=== PATIENT | female | born 1950 | race Caucasian/White ===

== ENCOUNTER 2017-08-23 17:00 | Inpatient (IN) | payer MEDICARE, MEDICAID ==
[2017-08-23] MEDS ORDERED: Sodium Chloride 0.9% 10 ML Syringe FLUSH PRN (17:20)
[2017-08-23] MEDS ORDERED: Sodium Chloride 0.9% 1,000 ML IV ONE (17:20)
--- NOTE | 2017-08-23 17:31 | EDM.PDOC ---
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 The patient is legally blind and she has been having troubles with headaches. She had surgery for glaucoma to see if that would help with the headaches but it did not. She also has not been eating or drinking much. She says she does not have an appetite and when she does try to eat she feels nauseated. She has not vomited. She has no fever or chills. She has no chest pain, shortness of breath or abdominal pain. She has no numbness or weakness. She went to see Dr Guzman for the first time today. He did some labs work and examined her. Her BP was low at 89 systolic. Her WBC is elevated at 11.2. Her glucose was elevated at 125. Her BUN was elevated at 51. Her creatinine was 2.22. Her creatinine is usually normal. Dr Guzman sent her up here for admission for dehydration and renal insufficiency with hypotension. Onset: Gradual Duration: Day(s): Location: Reports: Head Quality: Reports: Ache Severity: Moderate Improves with: Reports: None Worsens with: Reports: None Associated Symptoms: Reports: Headaches, Nausea/Vomiting. Denies: Chest Pain, Cough, Fever/Chills, Shortness of Breath - Related Data Allergies Allergy/AdvReac Type Severity Reaction Status Date / Time No Known Allergies Allergy Verified 09/14/16 22:51 Home Meds: Home Meds Lisinopril 40 mg PO DAILY #30 tablet 06/23/14 [Rx] Diltiazem HCl [Dilt-Xr] 240 mg PO DAILY 11/23/15 [History] Acetaminophen/HYDROcodone [Menan 325-5 MG] 1 tab PO Q6H PRN #12 tablet 11/24/15 [Rx] Omeprazole 20 mg PO ACBREAKFAST 09/15/16 [History] amLODIPine Besylate [Norvasc] 5 mg PO DAILY 09/15/16 [History] Acetaminophen [Tylenol] 650 mg PO Q6H PRN #30 tablet 10/03/16 [Rx] Bisacodyl [Dulcolax] 10 mg RECTAL DAILY PRN #30 supp 10/03/16 [Rx] Cholecalciferol (Vitamin D3) [Vitamin D3] 2,000 units PO DAILY tablet 10/03/16 [Rx] Docusate Sodium [Colace] 100 mg PO DAILY cap 10/03/16 [Rx] Hydrochlorothiazide 25 mg PO DAILY #30 tablet 10/03/16 [Rx] Multivitamins,Therapeutic [Thera] 1 each PO DAILY tablet 10/03/16 [Rx] Sertraline [Zoloft] 50 mg PO DAILY #60 tablet 10/03/16 [Rx] Past Medical History HEENT History: Reports: Glaucoma Other HEENT History: cataracts Cardiovascular History: Reports: Hypertension Respiratory History: Reports: None Gastrointestinal History: Reports: Cholelithiasis, Jaundice Other Gastrointestinal History: plugged bile duct Genitourinary History: Reports: Urinary Incontinence, UTI, Recurrent 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: Prolapsed Uterus Other Musculoskeletal History: Generalized weakness Psychiatric History: Reports: Depression - Infectious Disease History Infectious Disease History: Reports: Chicken Pox, Measles, Mumps - Past Surgical History HEENT Surgical History: Reports: Eye Surgery Female Surgical History: Reports: Hysterectomy, Salpingo-Oophorectomy Social & Family History - Family History Other Oncologic Family History: sister of cancer - Tobacco Use Smoking Status *Q: Never Smoker Second Hand Smoke Exposure: No - Caffeine Use Caffeine Use: Reports: Coffee, Soda - Alcohol Use Days Per Week of Alcohol Use: 0 - Recreational Drug Use Recreational Drug Use: No - Living Situation & Occupation Living situation: Reports: , with Spouse Occupation: Retired ED ROS GENERAL - Review of Systems Review Of Systems: See Below Constitutional: Reports: No Symptoms HEENT: Reports: No Symptoms Respiratory: Reports: No Symptoms Cardiovascular: Reports: No Symptoms Endocrine: Reports: No Symptoms GI/Abdominal: Reports: Decreased Appetite, Nausea. Denies: Abdominal Pain, Vomiting : Reports: No Symptoms Musculoskeletal: Reports: No Symptoms Neurological: Reports: Headache ED EXAM, GENERAL - Physical Exam Exam: See Below Exam Limited By: No Limitations General Appearance: Alert, No Apparent Distress Ears: Normal External Exam Nose: Normal Inspection Head: Atraumatic, Normocephalic Neck: Normal Inspection Respiratory/Chest: No Respiratory Distress, Lungs Clear, Normal Breath Sounds Cardiovascular: Regular Rate, Rhythm, No Edema, No Murmur GI/Abdominal: Soft, Non-Tender, No Organomegaly, No Mass Back Exam: Normal Inspection Extremities: Normal Inspection Neurological: Alert, Oriented, No Motor/Sensory Deficits Course - Vital Signs Last Recorded V/S: Last Vital Signs Temp 98 F 08/23/17 17:15 Pulse 62 08/23/17 17:15 Resp 16 08/23/17 17:15 BP 82/64 L 08/23/17 17:15 Pulse Ox 100 08/23/17 17:15 - Orders/Labs/Meds Orders: Active Orders 24 hr Category Date Time Status Insert Calderon Catheter [Insert Urinary Catheter] [OM.PC] Care 08/23/17 18:00 Ordered Stat Peripheral IV Care [RC] . DIRECTED Care 08/23/17 17:20 Active Urinary Catheter Assessment [RC] ASDIRECTED Care 08/23/17 17:57 Active SEDIMENTATION RATE AUTO [HEME] Stat Lab 08/23/17 17:35 Received UA W/MICROSCOPIC [URIN] Stat Lab 08/23/17 18:04 Results Sodium Chloride 0.9% [Saline Flush] Med 08/23/17 17:20 Active 10 ml FLUSH ASDIRECTED PRN Peripheral IV Insertion Adult [OM.PC] Routine Oth 08/23/17 17:20 Ordered Medication Orders Sodium Chloride (Saline Flush) 10 ml FLUSH ASDIRECTED PRN PRN Reason: Keep Vein Open Last Admin: 08/23/17 17:35 Dose: 10 ml Labs: Laboratory Tests 08/23/17 Range/Units 18:04 Urine Color Yellow (Yellow) Urine Appearance Clear (Clear) Urine pH 5.5 (5.0-8.0) Ur Specific Combs 1.025 (1.005-1.030) Urine Protein Trace H (Negative) Urine Glucose (UA) Negative (Negative) Urine Ketones Trace H (Negative) Urine Occult Blood Negative (Negative) Urine Nitrite Negative (Negative) Urine Bilirubin Negative (Negative) Urine Urobilinogen 0.2 (0.2-1.0) Ur Leukocyte Esterase Negative (Negative) Meds: Medications Generic Name Dose Route Start Last Admin Trade Name Freq PRN Reason Stop Dose Admin Sodium Chloride 10 ml 08/23/17 17:20 08/23/17 17:35 Saline Flush FLUSH 10 ml ASDIRECTED PRN Administration Keep Vein Open Discontinued Medications Generic Name Dose Route Start Last Admin Trade Name Donta PRN Reason Stop Dose Admin Sodium Chloride 1,000 mls @ 1,000 mls/hr 08/23/17 17:20 08/23/17 18:15 Normal Saline IV 08/23/17 18:19 1,000 mls/hr ONETIME ONE Administration - Re-Assessments/Exams Free Text/Narrative Re-Assessment/Exam: 08/23/17 17:33 I ordered an IV NS 1L bolus, UA and a CT of her head. 08/23/17 18:[address] looks good. Her UA shows no UTI. Her BP did go down to 79 systolic. She is still getting the bolus. 08/23/17 18:46 I feel she needs to be admitted. I called Dr Melo and he agreed to the admission. 08/23/17 18:57 Her came and she did not remember him for a short time. Departure - Departure Time of Disposition: 18:50 Disposition: Admitted As Inpatient 64 Condition: Poor Clinical Impression: Dehydration, Renal insufficiency, No appetite, Nausea Headache Qualifiers: Headache type: unspecified Headache chronicity pattern: chronic headache Intractability: not intractable Qualified Code(s): R51 - Headache Hypotension Qualifiers: Hypotension type: unspecified hypotension type Qualified Code(s): I95.9 - Hypotension, unspecified Referrals: Stephen Guzman MD [Primary Care Provider] - Forms: ED Department Discharge - My Orders Last 24 Hours: My Active Orders 08/23/17 17:20 Peripheral IV Care [RC] . DIRECTED Sodium Chloride 0.9% [Saline Flush] 10 ml FLUSH ASDIRECTED PRN Peripheral IV Insertion Adult [OM.PC] Routine 08/23/17 17:35 SEDIMENTATION RATE AUTO [HEME] Stat 08/23/17 17:57 Urinary Catheter Assessment [RC] ASDIRECTED 08/23/17 18:00 Insert Calderon Catheter [Insert Urinary Catheter] [OM.PC] Stat 08/23/17 18:04 UA W/MICROSCOPIC [URIN] Stat - Assessment/Plan Last 24 Hours: My Active Orders 08/23/17 17:20 Peripheral IV Care [RC] . DIRECTED Sodium Chloride 0.9% [Saline Flush] 10 ml FLUSH ASDIRECTED PRN Peripheral IV Insertion Adult [OM.PC] Routine 08/23/17 17:35 SEDIMENTATION RATE AUTO [HEME] Stat 08/23/17 17:57 Urinary Catheter Assessment [RC] ASDIRECTED 08/23/17 18:00 Insert Calderon Catheter [Insert Urinary Catheter] [OM.PC] Stat 08/23/17 18:04 UA W/MICROSCOPIC [URIN] Stat
--- NOTE | 2017-08-23 18:46 | CT ---
Head CT Technique: Multiple axial sections through the brain were obtained. Intravenous contrast was not utilized. Comparison: Prior head CT study of 09/14/16. Findings: Ventricles are moderately prominent. Sulci and basal cisterns are mildly prominent. Findings most likely due to atrophy with greater central component. Diminished density is noted within the periventricular and subcortical white matter. 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 No other abnormal parenchymal densities are seen. No evidence of intracranial hemorrhage. No midline shift or mass effect is seen. Atherosclerotic calcification is seen within the vertebral vessels. Minimal atherosclerotic calcification is noted within the carotid siphon. Right orbital prosthesis is seen. No acute calvarial abnormality is seen. Impression: 1. Senescent change as noted above. No significant change is seen from prior study. Nothing acute is identified. Diagnostic code #2
--- NOTE | 2017-08-23 19:44 | PCM.HP ---
H&P History of Present Illness - General Date of Service: 08/23/17 Admit Problem/Dx: Admission Diagnosis/Problem Admission Diagnosis/Problem Acute renal insufficiency Source of Information: Patient, Family, Old Records, Provider, RN, RN Notes Reviewed History Limitations: Reports: No Limitations - History of Present Illness Initial Comments - Free Text/Narative: Senait Solis is a 66 yo female who presented to our ED on 08/23/17 after being seen at the [facility] by Dr. Guzman for headaches, dehydration, and hypotension. She is legally blind and has been having trouble with headaches. She recently underwent glaucoma surgery to see if this would help, however he had did not. She has not been eating or drinking much. She reports a positive appetite, however when she does try to eat she feels nauseated. Has not vomited. No fever or chills, chest pain, shortness of breath, or abdominal pain. Denies numbness or weakness. Her BP at [facility] was low at 89 systolic and her white count was elevated at 11.2. Hemoglobin was normal at 13.9 hematocrit normal at 43.9. Platelet count normal at 238,000. She was normocytic. Glucose is elevated at 125. BUN was elevated at 51. Creatinine was high at 2.22. Sodium was normal at 139. Potassium normal 4.2. CO2 was low at 21. Anion gap was good at 18. Albumin was good at 3.5. Liver enzymes were normal with AST at 31 ALT at 52 and alkaline phosphatase at 74. Bilirubin was normal at 0.3. Old records reveals her creatinine is usually normal. Her EGFR was 22. CRP was less than 2.0 In the ED her temperature was 98F. Pulse 62. Respirations 16. Blood pressure was low at 82/64. Pulse ox 100% on room air. An IV was established UA was negative. Sedimentation rate was mildly elevated at 24. UA was negative. As noted before prior labs were obtained at [facility]. CT of the head showed senescent changes and nothing acute. Her blood pressure remained low in the ED and she was weak. It is reported she also did not recognize her initially when he walked into the room. Dr. Hunt reports he spoke with her primary care provider Dr. Guzman and he is planning to work her up for these headaches. She carries a history of being legally blind, glaucoma, cataracts, HTN, cholelithiasis, dementia, urinary incontinence, recurrent UTIs, prolapsed uterus , generalized weakness, and depression. She was never a smoker. She is a full code and her primary care provider is Dr. Guzman. - Related Data Allergies/Adverse Reactions: Allergies Allergy/AdvReac Type Severity Reaction Status Date / Time No Known Allergies Allergy Verified 09/14/16 22:51 Home Medications: Home Meds Lisinopril 40 mg PO DAILY #30 tablet 06/23/14 [Rx] Diltiazem HCl [Dilt-Xr] 240 mg PO DAILY 11/23/15 [History] Omeprazole 20 mg PO ACBREAKFAST 09/15/16 [History] Acetaminophen [Tylenol] 650 mg PO Q6H PRN #30 tablet 10/03/16 [Rx] Bisacodyl [Dulcolax] 10 mg RECTAL DAILY PRN #30 supp 10/03/16 [Rx] Cholecalciferol (Vitamin D3) [Vitamin D3] 2,000 units PO DAILY tablet 10/03/16 [Rx] Docusate Sodium [Colace] 100 mg PO DAILY cap 10/03/16 [Rx] Hydrochlorothiazide 25 mg PO DAILY #30 tablet 10/03/16 [Rx] Multivitamins,Therapeutic [Thera] 1 each PO DAILY tablet 10/03/16 [Rx] Bimatoprost [LUMIGAN 0.03% Ophth Soln] 1 drop EYEBOTH BEDTIME 08/23/17 [History] Brimonidine Tartrate/Timolol [Combigan Eye Drops] 1 drop EYEBOTH BID 08/23/17 [ History] Citalopram Hydrobromide [Celexa] 15 mg PO DAILY 08/23/17 [History] Estrogens, Conjugated [Premarin Vaginal Crm] 0.5 gm VAG DAILY 08/23/17 [History] Prednisolone Acetate/Nepafenac [Prednisolone 1%-Nepafenac 0.1%] 3.5 ml OP TID [History] Past Medical History HEENT History: Reports: Glaucoma Other HEENT History: cataracts Cardiovascular History: Reports: Hypertension Respiratory History: Reports: None Gastrointestinal History: Reports: Cholelithiasis, Jaundice Other Gastrointestinal History: plugged bile duct Genitourinary History: Reports: Urinary Incontinence, UTI, Recurrent 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: Prolapsed Uterus Other Musculoskeletal History: Generalized weakness Neurological History: Reports: Alzheimers Disease Psychiatric History: Reports: Depression Endocrine/Metabolic History: Reports: Vitamin D Deficiency - Infectious Disease History Infectious Disease History: Reports: Chicken Pox, Measles, Mumps - Past Surgical History HEENT Surgical History: Reports: Eye Surgery Female Surgical History: Reports: Hysterectomy, Salpingo-Oophorectomy Social & Family History - Family History Other Oncologic Family History: sister of cancer - Tobacco Use Smoking Status *Q: Never Smoker Second Hand Smoke Exposure: No - Caffeine Use Caffeine Use: Reports: Coffee, Soda - Alcohol Use Days Per Week of Alcohol Use: 0 - Recreational Drug Use Recreational Drug Use: No - Living Situation & Occupation Living situation: Reports: , with Spouse Occupation: Retired H&P Review of Systems - Review of Systems: Review Of Systems: See Below General: Reports: Weakness, Decreased Appetite. Denies: Fever, Chills, Malaise , Fatigue, Night Sweats HEENT: Reports: Headaches (in ED - resolved now ). Denies: Ear Pain, Eye Pain, Hearing Changes, Rhinitis, Sinus Congestion, Sore Throat, Vertigo, Visual Changes, Other Pulmonary: Reports: No Symptoms. Denies: Shortness of Breath, Wheezing, Pleuritic Chest Pain, Cough, Sputum Cardiovascular: Reports: No Symptoms. Denies: Chest Pain, Palpitations, Dyspnea on Exertion, Orthopnea, PND, Edema Gastrointestinal: Reports: No Symptoms. Denies: Abdominal Pain, Black Stool, Bloody Stool, Constipation, Diarrhea, Mucous in Stool, Nausea, Vomiting Genitourinary: Reports: No Symptoms. Denies: Dysuria, Frequency, Burning, Pain , Urgency Musculoskeletal: Reports: No Symptoms. Denies: Neck Pain, Shoulder Pain, Arm Pain, Back Pain, Hand Pain, Leg Pain, Foot Pain, Muscle Pain Skin: Reports: No Symptoms. Denies: Cyanosis, Jaundice, Mottled, Pallor Psychiatric: Reports: No Symptoms. Denies: Confusion, Depression, Mood Lability Neurological: Reports: Headache, Weakness. Denies: Confusion, Dizziness, Numbness, Tingling, Trouble Speaking, Difficulty Walking, Change in Speech Hematologic/Lymphatic: Reports: No Symptoms Immunologic: Reports: No Symptoms Review of Systems Comment:: Patient appears to be somewhat hard of hearing as I had to speak quite loudly to elicit a good response. She did answer questions appropriately. She reports she had a headache in the ED but that has resolved now. No complaints currently. Exam - Exam Exam: See Below - Vital Signs Vital Signs: Last Vital Signs Temp 98 F 08/23/17 17:15 Pulse 62 08/23/17 17:15 Resp 16 08/23/17 17:15 BP 82/64 L 08/23/17 17:15 Pulse Ox 100 08/23/17 17:15 Weight: 132 lb 12.8 oz - Exam Quality Assessment: DVT Prophylaxis General: Alert, Oriented, Cooperative HEENT: Conjunctiva Clear, EACs Clear, Hearing Intact (but somwheat hard of hearing ), Mucosa Moist & [place], Nares Patent, Posterior Pharynx Clear Neck: Supple, Trachea Midline, Full Range of Motion. No: Lymphadenopathy, JVD Lungs: Clear to Auscultation, Normal Respiratory Effort Cardiovascular: Regular Rate, Regular Rhythm GI/Abdominal Exam: Normal Bowel Sounds, Soft, Non-Tender, No Organomegaly, No Distention, No Abnormal Bruit, No Mass (Female) Exam: Deferred Rectal (Female) Exam: Deferred Back Exam: Normal Inspection, Full Range of Motion Extremities: Normal Inspection, Normal Range of Motion, Non-Tender, No Pedal Edema, Normal Capillary Refill Peripheral Pulses: 2+: Radial (L), Radial (R), Posterior Tibial (L), Posterior Tibial (R), Dorsalis Pedis (L), Dorsalis Pedis (R) Skin: Warm, Dry, Intact Neurological: Cranial Nerves Intact (grossly ) Neuro Extensive - Mental Status: Alert, Oriented x3, Normal Mood/Affect, Normal Cognition, Memory Intact Neuro Extensive - Motor, Sensory, Reflexes: CN II-XII Intact (grossly ) Psychiatric: Alert, Normal Affect, Normal Mood Physical Exam Comments:: Patient examined after settling into hospital bed. No concerns this time. Vital signs have improved greatly. *Q Meaningful Use (ADM) - VTE *Q VTE Criteria *Q: - Stroke *Q Stroke Criteria *Q: - AMI *Q AMI Criteria *Q: - Problem List (1) Renal insufficiency SNOMED Code(s): 641549489 ICD Code: N28.9 - DISORDER OF KIDNEY AND URETER, UNSPECIFIED Status: Acute Priority: High Current Visit: Yes (2) Dehydration SNOMED Code(s): 87994100 ICD Code: E86.0 - DEHYDRATION Status: Acute Priority: High Current Visit: Yes (3) Weakness SNOMED Code(s): 48468320 ICD Code: R53.1 - WEAKNESS Status: Acute Priority: High Current Visit: Yes (4) Hypotension SNOMED Code(s): 07171900 ICD Code: I95.9 - HYPOTENSION, UNSPECIFIED Status: Acute Priority: High Current Visit: Yes Qualifiers: Hypotension type: unspecified hypotension type Qualified Code(s): I95.9 - Hypotension, unspecified (5) Headache SNOMED Code(s): 15688195 ICD Code: R51 - HEADACHE Status: Resolved Priority: Medium Current Visit: Yes Qualifiers: Headache type: unspecified Headache chronicity pattern: chronic headache Intractability: not intractable Qualified Code(s): R51 - Headache Problem List Initiated/Reviewed/Updated: Yes Orders Last 24hrs: Active Orders 24 hr Category Date Time Status Admission Status [Patient Status] [ADT] Routine ADT 08/23/17 19:26 Active CULTURE BLOOD [BC] Stat Lab 08/23/17 17:35 Received CULTURE BLOOD [BC] Stat Lab 08/23/17 17:50 Received Blood Culture x2 Reflex Set [OM.PC] Stat Oth 08/23/17 19:22 Ordered Medication Orders Sodium Chloride (Saline Flush) 10 ml FLUSH ASDIRECTED PRN PRN Reason: Keep Vein Open Last Admin: 08/23/17 17:35 Dose: 10 ml Assessment/Plan Comment:: I/P: Acute renal insufficiency -Reported pt. has had poor food and fluid intake -Hypotensive in ED and at [facility] -Anion gap normal at 18 at [facility] -BUN 18 at [facility] -Creatinine 2.22 at [facility] -eGFR 22 at [facility] -[facility] hospital notes show baseline kidney function is within normal ranges -Hypotensive with BP of 80/50 at [place] and 82/64 in ED - improved on admission as below -Likely 2/2 dehydration and poor intake -Given 1 L bolus in ED with BP now 101/64 -Calderon in place for output monitoring -Fluids as ordered Dehydration -see above Weakness -worse than baseline -likely 2/2 above -UA negative -WBC only slightly elevated -CRP <0.2 -fall precautions Hypotension -Improved from ED -Fluids as above -Likely 2/2 dehydration -Continue to monitor Headache -Resolved prior to admission -SED in ER slightly elevated at 24 to r/o temporal arteritis -Has had many chronic episodes of unknown etiology -Recent glaucoma surgery with no resolution of symptoms. -Dr. Guzman is working up -MRI ordered Chronic: Dementia Glaucoma HTN Cholelithiasis Urinary incontenence recurrent UTI Prolapsed uterus generalized weakness Depression Plan: Admit to medical floor GI prophylaxis: pepcid DVT prophylaxis: RENA fishman and Terry CM/SW for discharge planning PT/OT Other orders as indicated above Routine AM labs She is a high fall risk She is a full code. Her PCP is Dr. Guzman at [facility] here in [place]
[2017-08-23] MEDS ORDERED: Acetaminophen/HYDROcodone 325-5 MG Tab PO PRN (20:13)
[2017-08-23] MEDS ORDERED: Docusate Sodium 100 MG Cap PO PRN (20:13)
[2017-08-23] MEDS ORDERED: Ondansetron 4 MG/2 ML SDV IV PRN (20:13)
[2017-08-23] MEDS ORDERED: Temazepam 7.5 MG Cap PO PRN (20:13)
[2017-08-23] MEDS ORDERED: Magnesium Hydroxide 400 MG/5 ML Susp 30 ML Cup PO PRN (20:13)
[2017-08-23] MEDS ORDERED: Ondansetron 4 MG Tab.DIS PO PRN (20:13)
[2017-08-23] MEDS ORDERED: Acetaminophen 325 MG Tab PO PRN (20:13)
[2017-08-23] MEDS ORDERED: Bisacodyl 5 MG Tab PO PRN (20:13)
[2017-08-23] MEDS ORDERED: Albuterol/Ipratropium 3.0-0.5 MG/3 ML Neb Soln NEB PRN (20:13)
[2017-08-23] MEDS ORDERED: hydrALAZINE 10 MG Tab PO PRN (20:44)
[2017-08-23] MEDS ORDERED: Metoprolol Tartrate 5 MG/5 ML SDV IVPUSH PRN (20:44)
[2017-08-23] MEDS ORDERED: Brimonidine 0.2% Ophth Soln 5 ML Bottle EYEBOTH SCH (21:00)
[2017-08-23] MEDS: Sodium Chloride 0.9% 1,000 ML IV SCH (21:00)
[2017-08-23] MEDS ORDERED: FLU Vacc TS 2017-18 (65yr UP)/PF 180 MCG/0.5 ML Syringe IM ONE (21:00)
[2017-08-23] MEDS ORDERED: Famotidine 20 MG Tab PO SCH (21:00)
[2017-08-23] MEDS: Latanoprost 0.005% Ophth Soln 2.5 ML Bottle EYEBOTH SCH (21:55)
[2017-08-24] MEDS: Sodium Chloride 0.9% 1,000 ML IV SCH ×3 (02:01→23:48)
[2017-08-24] MEDS: Pantoprazole 40 MG Tab.CR PO SCH (06:34)
[2017-08-24] MEDS: Cholecalciferol (Vitamin D3) 1,000 Unit Tab PO SCH (09:32)
[2017-08-24] MEDS: Multivitamins,Therapeutic Tab PO SCH (09:32)
[2017-08-24] MEDS: Citalopram 10 MG Tab PO SCH (09:32)
[2017-08-24] MEDS: Diltiazem 240 MG Cap.ER PO SCH (09:33)
[2017-08-24] MEDS: Timolol Maleate 0.5% Ophth Soln 5 ML Bottle EYEBOTH SCH ×2 (09:33→20:36)
[2017-08-24] MEDS: Brimonidine 0.2% Ophth Soln 5 ML Bottle EYEBOTH SCH ×2 (09:33→20:34)
[2017-08-24] MEDS: Estrogens,Conjugated Vaginal Crm 30 GM Tube VAG SCH (09:34)
--- NOTE | 2017-08-24 13:41 | MR ---
MRI brain Technique: T1 sagittal; T2, T2 FLAIR, T1 and diffusion axial; T1-weighted coronal images were also obtained. Comparison: Prior head CT study of 08/23/17. Findings: Ventricles along with basal cisterns and sulci over the convexities are moderately prominent. Normal signal void is seen within the major cerebral arteries within the skull base. Diffuse increased signal is seen within the periventricular and subcortical white matter which is compatible with small vessel ischemic demyelination change. 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 There are no acute diffusion abnormalities being seen. Impression: 1. Senescent change as noted above. 2. No acute diffusion abnormalities are identified. Diagnostic code #2
--- NOTE | 2017-08-24 16:49 | PCM.PN ---
- General Info Date of Service: 08/24/17 Admission Dx/Problem (Free Text): Admission Diagnosis/Problem Admission Diagnosis/Problem Acute renal insufficiency Subjective Update: Follow-up Functional Status: Reports: Pain Controlled (Pain free ), Tolerating Diet, Ambulating, Urinating. Denies: New Symptoms - Review of Systems General: Reports: No Symptoms. Denies: Fever, Weakness, Malaise, Chills HEENT: Reports: No Symptoms. Denies: Ear Pain, Eye Pain, Headaches Pulmonary: Reports: No Symptoms. Denies: Shortness of Breath, Pleuritic Chest Pain, Cough, Sputum Cardiovascular: Reports: No Symptoms. Denies: Chest Pain, Palpitations, Dyspnea on Exertion, Edema Gastrointestinal: Reports: No Symptoms. Denies: Abdominal Pain, Constipation, Diarrhea, Nausea, Vomiting Genitourinary: Reports: No Symptoms. Denies: Dysuria, Frequency, Burning, Urgency Musculoskeletal: Reports: No Symptoms Skin: Reports: No Symptoms Neurological: Reports: No Symptoms. Denies: Confusion, Headache, Numbness Psychiatric: Reports: No Symptoms - Patient Data Vitals - Most Recent: Last Vital Signs Temp 98.6 F 08/24/17 16:02 Pulse 70 08/24/17 16:02 Resp 16 08/24/17 16:02 BP 116/89 08/24/17 16:02 Pulse Ox 98 08/24/17 16:02 Weight - Most Recent: 134 lb 3.196 oz I&O - Last 24 Hours: Intake & Output 08/24/17 08/24/17 08/24/17 06:59 14:59 22:59 Intake Total 2175 120 1100 Output Total 400 1000 Balance 1775 120 100 Lab Results Last 24 Hours: Laboratory Results - last 24 hr 08/23/17 08/24/17 08/24/17 Range/Units 22:29 06:00 06:00 WBC 10.46 H (3.98-10.04) K/mm3 RBC 4.42 (3.98-5.22) M/mm3 Hgb 13.6 (11.2-15.7) gm/L Hct 41.7 (34.1-44.9) % MCV 94.3 (79.4-94.8) fl MCH 30.8 (25.6-32.2) pg MCHC 32.6 (32.2-35.5) g/dl RDW Std Deviation 43.1 (36.4-46.3) fL Plt Count 208 (182-369) K/mm3 MPV 11.7 (9.4-12.3) fl Neut % (Auto) 70.9 (34.0-71.1) % Lymph % (Auto) 18.1 L (19.3-51.7) % Island % (Auto) 8.0 (4.7-12.5) % Eos % (Auto) 2.4 (0.7-5.8) Baso % (Auto) 0.4 (0.1-1.2) % Neut # (Auto) 7.42 H (1.56-6.13) K/mm3 Lymph # (Auto) 1.89 (1.18-3.74) K/mm3 Island # (Auto) 0.84 H (0.24-0.36) K/mm3 Eos # (Auto) 0.25 (0.04-0.36) K/mm3 Baso # (Auto) 0.04 (0.01-0.08) K/mm3 Sodium 142 (136-145) mEq/L Potassium 3.5 (3.5-5.1) mEq/L Chloride 111 H (98-107) mEq/L Carbon Dioxide 18 L (21-32) mEq/L Anion Gap 16.5 H (5-15) BUN 39 H (7-18) mg/dL Creatinine 1.3 H (0.55-1.02) mg/dL Est Cr Clr Drug Dosing 38.77 mL/min Estimated GFR (MDRD) 41 (>60) mL/min BUN/Creatinine Ratio 30.0 H (14-18) Glucose 100 (80-115) mg/dL Calcium 8.4 L (8.5-10.1) mg/dL Magnesium 2.1 (1.8-2.4) mg/dl CK-MB (CK-2) (0-3.6) ng/ml Troponin I (0.00-0.056) ng/mL MRSA (PCR) Negative 08/24/17 08/24/17 Range/Units 09:35 13:40 WBC (3.98-10.04) K/mm3 RBC (3.98-5.22) M/mm3 Hgb (11.2-15.7) gm/L Hct (34.1-44.9) % MCV (79.4-94.8) fl MCH (25.6-32.2) pg MCHC (32.2-35.5) g/dl RDW Std Deviation (36.4-46.3) fL Plt Count (182-369) K/mm3 MPV (9.4-12.3) fl Neut % (Auto) (34.0-71.1) % Lymph % (Auto) (19.3-51.7) % Island % (Auto) (4.7-12.5) % Eos % (Auto) (0.7-5.8) Baso % (Auto) (0.1-1.2) % Neut # (Auto) (1.56-6.13) K/mm3 Lymph # (Auto) (1.18-3.74) K/mm3 Island # (Auto) (0.24-0.36) K/mm3 Eos # (Auto) (0.04-0.36) K/mm3 Baso # (Auto) (0.01-0.08) K/mm3 Sodium (136-145) mEq/L Potassium (3.5-5.1) mEq/L Chloride (98-107) mEq/L Carbon Dioxide (21-32) mEq/L Anion Gap (5-15) BUN (7-18) mg/dL Creatinine (0.55-1.02) mg/dL Est Cr Clr Drug Dosing mL/min Estimated GFR (MDRD) (>60) mL/min BUN/Creatinine Ratio (14-18) Glucose (80-115) mg/dL Calcium (8.5-10.1) mg/dL Magnesium (1.8-2.4) mg/dl CK-MB (CK-2) 12.8 H 9.6 H (0-3.6) ng/ml Troponin I < 0.017 < 0.017 (0.00-0.056) ng/mL MRSA (PCR) Med Orders - Current: Current Medications Acetaminophen (Tylenol) 650 mg PO Q4H PRN PRN Reason: Pain (Mild 1-3)/fever Hydrocodone Bitart/Acetaminophen ([place] 325-5 Mg) 1 tab PO Q4H PRN PRN Reason: Pain (moderate 4-6) Albuterol/Ipratropium (Duoneb 3.0-0.5 Mg/3 Ml) 3 ml NEB Q4H PRN PRN Reason: Shortness Of Breath/wheezing Bisacodyl (Dulcolax) 5 mg PO DAILY PRN PRN Reason: Constipation Brimonidine Tartrate (Alphagan 0.2% Ophth Soln) 0 ml EYEBOTH BID [facility] Last Admin: 08/24/17 09:33 Dose: 1 drop Cholecalciferol (Vitamin D3) 2,000 units PO DAILY [facility] Last Admin: 08/24/17 09:32 Dose: 2,000 units Citalopram Hydrobromide (Celexa) 15 mg PO DAILY [facility] Last Admin: 08/24/17 09:32 Dose: 15 mg Diltiazem HCl (Dilacor Xr) 240 mg PO DAILY [facility] Last Admin: 08/24/17 09:33 Dose: 240 mg Docusate Sodium (Colace) 100 mg PO BID PRN PRN Reason: Constipation Estrogens Conjugated (Premarin Vaginal Crm) 0.5 gm VAG DAILY [facility] Last Admin: 08/24/17 09:34 Dose: 0.5 gram Hydralazine HCl (Apresoline) 10 mg PO Q6H PRN PRN Reason: Hypertension Sodium Chloride (Normal Saline) 1,000 mls @ 200 mls/hr IV ASDIRECTED [facility] Stop: 08/25/17 01:44 Last Admin: 08/24/17 02:01 Dose: 200 mls/hr Latanoprost (Xalatan 0.005% Ophth Soln) 0 ml EYEBOTH BEDTIME [facility] Last Admin: 08/23/17 21:55 Dose: 1 drop Magnesium Hydroxide (Milk Of Magnesia) 30 ml PO Q12H PRN PRN Reason: Constipation Magnesium Sulfate (Pharmacy To Dose - Magnesium Replacement) 0 dose .XX ASDIRECTED PRN PRN Reason: RX TO WATCH MAG LEVELS Metoprolol Tartrate (Lopressor) 5 mg IVPUSH Q4H PRN PRN Reason: Tachycardia Multivitamins (Thera) 1 each PO DAILY [facility] Last Admin: 08/24/17 09:32 Dose: 1 each Ondansetron HCl (Zofran Odt) 4 mg PO Q4H PRN PRN Reason: nausea, able to take PO Ondansetron HCl (Zofran) 4 mg IV Q4H PRN PRN Reason: Nausea/Vomiting Pantoprazole Sodium (Protonix) 40 mg PO DAILY@0700 [facility] Last Admin: 08/24/17 06:34 Dose: 40 mg Prednisolone 1%- Nepafenac Ophth Solution 0 each EYERT TID [facility] Potassium Chloride (Pharmacy To Dose - Potassium Replacement) 0 dose .XX ASDIRECTED PRN PRN Reason: RX TO WATCH K LEVELS Senna/Docusate Sodium (Senna Plus) 1 tab PO BID PRN PRN Reason: Constipation Sodium Chloride (Saline Flush) 10 ml FLUSH ASDIRECTED PRN PRN Reason: Keep Vein Open Last Admin: 08/23/17 17:35 Dose: 10 ml Temazepam (Restoril) 7.5 mg PO BEDTIME PRN PRN Reason: Sleep Timolol Maleate (Timoptic 0.5% Ophth Soln) 0 ml EYEBOTH BID [facility] Last Admin: 08/24/17 09:33 Dose: 1 drop Discontinued Medications Brimonidine Tartrate (Alphagan 0.2% Ophth Soln) 0 ml EYEBOTH BID [facility] Sodium Chloride (Normal Saline) 1,000 mls @ 1,000 mls/hr IV ONETIME ONE Stop: 08/23/17 18:19 Last Admin: 08/23/17 18:15 Dose: 1,000 mls/hr Influenza Virus Vaccine (Pharmacy To Dose - Influenza Vaccine) 1 each IM ONETIME ONE Stop: 08/23/17 20:20 Influenza Virus Vaccine (Fluzone High-Dose ) 180 mcg IM .ONCE ONE Stop: 08/23/17 21:01 - Exam Quality Assessment: DVT Prophylaxis General: Alert, Oriented, Cooperative HEENT: Mucous Membr. Moist/[place] Neck: Supple, Trachea Midline, No JVD, No Thyromegaly Lungs: Clear to Auscultation, Normal Respiratory Effort Cardiovascular: Regular Rate, Regular Rhythm, No Murmurs GI/Abdominal Exam: Normal Bowel Sounds, Soft, Non-Tender, No Organomegaly, No Distention, No Abnormal Bruit (Female) Exam: Deferred Back Exam: Normal Inspection, Full Range of Motion Extremities: Normal Inspection, Normal Range of Motion, Non-Tender, No Pedal Edema, Normal Capillary Refill Peripheral Pulses: 2+: Radial (L), Radial (R), Posterior Tibial (L), Posterior Tibial (R), Dorsalis Pedis (L), Dorsalis Pedis (R) Skin: Warm, Dry, Intact Neurological: No New Focal Deficit Psy/Mental Status: Alert, Normal Affect, Normal Mood Physical Findings Comments:: She has improved greatly and her labs are looking much better. Nursing assisted with meal today and she did well eating. She is very hard of hearing and SW reports pt. has been fitted for hearing aids and they are on order. - Problem List & Annotations (1) Renal insufficiency SNOMED Code(s): 123555657 Code(s): N28.9 - DISORDER OF KIDNEY AND URETER, UNSPECIFIED Status: Acute Priority: High Current Visit: Yes (2) Dehydration SNOMED Code(s): 22019629 Code(s): E86.0 - DEHYDRATION Status: Acute Priority: High Current Visit : Yes (3) Weakness SNOMED Code(s): 05467713 Code(s): R53.1 - WEAKNESS Status: Acute Priority: High Current Visit: Yes (4) Hypotension SNOMED Code(s): 18706134 Code(s): I95.9 - HYPOTENSION, UNSPECIFIED Status: Resolved Priority: High Current Visit: Yes Qualifiers: Hypotension type: unspecified hypotension type Qualified Code(s): I95.9 - Hypotension, unspecified (5) Headache SNOMED Code(s): 85146039 Code(s): R51 - HEADACHE Status: Resolved Priority: Medium Current Visit : Yes Qualifiers: Headache type: unspecified Headache chronicity pattern: chronic headache Intractability: not intractable Qualified Code(s): R51 - Headache - Problem List Review Problem List Initiated/Reviewed/Updated: Yes - My Orders Last 24 Hours: My Active Orders 08/23/17 20:13 Oxygen Therapy [RC] PRN Up With Assistance [RC] ASDIRECTED VTE/DVT Education [RC] PER UNIT ROUTINE Vital Signs [RC] Q4HR Consult to Case Management [CONS] Routine Consult to Spanish Medical Interpreter [CONS] Routine OT Evaluation and Treatment [CONS] Routine PT Evaluation and Treatment [CONS] Routine Acetaminophen [Tylenol] 650 mg PO Q4H PRN Acetaminophen/HYDROcodone [[place] 325-5 MG] 1 tab PO Q4H PRN Albuterol/Ipratropium [DuoNeb 3.0-0.5 MG/3 ML] 3 ml NEB Q4H PRN Bisacodyl [Dulcolax] 5 mg PO DAILY PRN Docusate Sodium [Colace] 100 mg PO BID PRN Docusate Sodium/Sennosides [Senna Plus] 1 tab PO BID PRN Magnesium Hydroxide [Milk of Magnesia] 30 ml PO Q12H PRN Ondansetron [Zofran ODT] 4 mg PO Q4H PRN Ondansetron [Zofran] 4 mg IV Q4H PRN Temazepam [Restoril] 7.5 mg PO BEDTIME PRN 08/23/17 20:14 Intake and Output [RC] 04,16 Pulse Oximetry [RC] PRN 08/23/17 20:15 Ambulate [RC] PER UNIT ROUTINE Antiembolic Hose [OM.PC] Per Unit Routine Sequential Compression Device [OM.PC] Per Unit Routine 08/23/17 20:18 Antiembolic Devices [RC] QSHIFT RT Aerosol Therapy [RC] ASDIRECTED 08/23/17 20:44 Metoprolol Tartrate [Lopressor] 5 mg IVPUSH Q4H PRN hydrALAZINE [Apresoline] 10 mg PO Q6H PRN 08/23/17 20:45 Magnesium Rep Pharmacy to Dose [Pharmacy to Dose - Magnesium Replacement] 0 dose .XX ASDIRECTED PRN Potassium Rep Pharmacy to Dose [Pharmacy to Dose - Potassium Replacement] 0 dose .XX ASDIRECTED PRN Sodium Chloride 0.9% [Normal Saline] 1,000 ml IV ASDIRECTED 08/23/17 21:00 Latanoprost [Xalatan 0.005% Ophth Soln] 0 ml EYEBOTH BEDTIME Patient's Own Medication [Ptom] 0 each EYERT TID 08/23/17 Dinner Regular Diet [DIET] 08/24/17 07:00 Pantoprazole [ProTONIX] 40 mg PO DAILY@0700 08/24/17 07:07 Brimonidine [Alphagan 0.2% Ophth Soln] 0 ml EYEBOTH BID 08/24/17 09:00 Cholecalciferol (Vitamin D3) [Vitamin D3] 2,000 units PO DAILY Citalopram [Celexa] 15 mg PO DAILY Diltiazem [Dilacor XR] 240 mg PO DAILY Estrogens, Conjugated [Premarin Vaginal Crm] 0.5 gm VAG DAILY Multivitamins,Therapeutic [Thera] 1 each PO DAILY Timolol Maleate [Timoptic 0.5% Ophth Soln] 0 ml EYEBOTH BID 08/25/17 05:11 BASIC METABOLIC PANEL,BMP [CHEM] AM CBC WITH AUTO DIFF [HEME] AM MAGNESIUM [CHEM] AM 08/26/17 05:11 BASIC METABOLIC PANEL,BMP [CHEM] AM CBC WITH AUTO DIFF [HEME] AM MAGNESIUM [CHEM] AM 08/27/17 05:11 BASIC METABOLIC PANEL,BMP [CHEM] AM CBC WITH AUTO DIFF [HEME] AM MAGNESIUM [CHEM] AM - Plan Plan:: I/P: Acute renal insufficiency- improved -Reported pt. has had poor food and fluid intake -Hypotensive in ED and at [facility] Prior -Anion gap 18 at [facility] -->16.5 -BUN 51 at [facility] -->39 -Creatinine 2.22 at [facility] -->1.3 -eGFR 22 at [facility] -->41 -Prior hospital notes show baseline kidney function is within normal ranges -Hypotensive with BP of 80/50 at [facility] and 82/64 in ED - improved on admission as below -Likely 2/2 dehydration and poor intake -Given 1 L bolus in ED with BP now 101/64 -Fluids as ordered Dehydration-improved -see above -Daughter reports pt. has very poor intake at [facility] unless assistance is given with feeding. Weakness-Improved -worse than baseline -likely 2/2 above -UA negative -WBC only slightly elevated - steady -CRP <0.2 -Troponin x2 - negative -CK-MB 12.8-->9.6 -fall precautions -Walking with PT/OT and nursing Resolved: Hypotension -Improved from ED -Fluids as above -Likely 2/2 dehydration -Continue to monitor Headache -Resolved prior to admission -SED in ER slightly elevated at 24 to r/o temporal arteritis -Has had many chronic episodes of unknown etiology -Recent glaucoma surgery with no resolution of symptoms. -Dr. 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 Chronic: Dementia Glaucoma HTN Cholelithiasis Urinary incontenence recurrent UTI Prolapsed uterus generalized weakness Depression Plan: Admit to medical floor GI prophylaxis: pepcid DVT prophylaxis: RENA fishman and Terry CM/SW for discharge planning PT/OT Other orders as indicated above Routine AM labs She is a high fall risk She is a full code. Her PCP is Dr. Guzman at [facility] here in [place] Possible discharge in 24 hours back to pending AM labs and continued improvement.
[2017-08-24] MEDS: PREDNISOLONE 1% EYERT SCH ×2 (17:16→20:37)
[2017-08-24] MEDS: NEPAFENAC EYERT SCH ×2 (17:16→20:37)
[2017-08-24] MEDS: Latanoprost 0.005% Ophth Soln 2.5 ML Bottle EYEBOTH SCH (20:36)
[2017-08-25] MEDS: Pantoprazole 40 MG Tab.CR PO SCH (06:20)
[2017-08-25] MEDS: Citalopram 10 MG Tab PO SCH (08:25)
[2017-08-25] MEDS: Timolol Maleate 0.5% Ophth Soln 5 ML Bottle EYEBOTH SCH (08:25)
[2017-08-25] MEDS: Brimonidine 0.2% Ophth Soln 5 ML Bottle EYEBOTH SCH (08:25)
[2017-08-25] MEDS: Multivitamins,Therapeutic Tab PO SCH (08:25)
[2017-08-25] MEDS: Diltiazem 240 MG Cap.ER PO SCH (08:25)
[2017-08-25] MEDS: Estrogens,Conjugated Vaginal Crm 30 GM Tube VAG SCH (08:26)
[2017-08-25] MEDS: Cholecalciferol (Vitamin D3) 1,000 Unit Tab PO SCH (08:26)
[2017-08-25] MEDS: PREDNISOLONE 1% EYERT SCH (10:51)
[2017-08-25] MEDS: NEPAFENAC EYERT SCH (10:51)
[2017-08-25] MEDS ORDERED: FLU Vacc TS 2017-18 (65yr UP)/PF 180 MCG/0.5 ML Syringe IM ONE (10:52)
[2017-08-25 12:22] VITALS: BP 130/92
--- NOTE | 2017-08-25 20:09 | PCM.DCSUM1 ---
Discharge Summary - Hospital Course Free Text/Narrative:: Senait Solis is a 66 yo female who presented to our ED on 08/23/17 after being seen at the [facility] by Dr. Guzman for headaches, dehydration, and hypotension. She is legally blind and has been having trouble with headaches. She recently underwent glaucoma surgery to see if this would help, however he had did not. She has not been eating or drinking much. She reports a positive appetite, however when she does try to eat she feels nauseated. Has not vomited. No fever or chills, chest pain, shortness of breath, or abdominal pain. Denies numbness or weakness. Her BP at [facility] was low at 89 systolic and her white count was elevated at 11.2. Hemoglobin was normal at 13.9 hematocrit normal at 43.9. Platelet count normal at 238,000. She was normocytic. Glucose is elevated at 125. BUN was elevated at 51. Creatinine was high at 2.22. Sodium was normal at 139. Potassium normal 4.2. CO2 was low at 21. Anion gap was good at 18. Albumin was good at 3.5. Liver enzymes were normal with AST at 31 ALT at 52 and alkaline phosphatase at 74. Bilirubin was normal at 0.3. Old records reveals her creatinine is usually normal. Her EGFR was 22. CRP was less than 2.0 In the ED her temperature was 98F. Pulse 62. Respirations 16. Blood pressure was low at 82/64. Pulse ox 100% on room air. An IV was established UA was negative. Sedimentation rate was mildly elevated at 24. UA was negative. As noted before prior labs were obtained at [place]. CT of the head showed senescent changes and nothing acute. Her blood pressure remained low in the ED and she was weak. It is reported she also did not recognize her initially when he walked into the room. Dr. Hunt reports he spoke with her primary care provider Dr. Guzman and he is planning to work her up for these headaches. She carries a history of being legally blind, glaucoma, cataracts, HTN, cholelithiasis, dementia, urinary incontinence, recurrent UTIs, prolapsed uterus , generalized weakness, and depression. She was never a smoker. She is a full code and her primary care provider is Dr. Guzman. She improved rapidly while in our care with IV fluids and assistance by nursing staff for feedings. Hypotension resolved and her kidney function returned to near baseline. Her weakness and dehydration improved. It was noted by the patient's daughter that she has poor intake at the group home in which she resides unless nursing staff assists her. She is blind and this can make feeding difficult. It was recommended she be 1:1 with feedings as she was found to be high aspiration risk. Her primary care provider can continue to monitor this and provide guidance as necessary. There was also some concern as was noted the patient has had frequent headaches in the past. She did not complain of any headaches while in our care. MRI was ordered on admission and interpretation by Dr. Parry read: 1. 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 2. No acute diffusion abnormalities seen. 3. Senescent changes. This can be investigated further by her primary care provider on an outpatient basis as well. She is a high fall risk. She should follow-up with her primary care provider within 7-10 days of discharge or sooner if complications arise. She is to be discharged today back to the [facility]. - Discharge Data Discharge Date: 08/25/17 (Admit date: 08/23/17) Discharge Disposition: DC/Tfer to SNF 03 Condition: Good - Discharge Diagnosis/Problem(s) (1) Renal insufficiency SNOMED Code(s): 347565848 ICD Code: N28.9 - DISORDER OF KIDNEY AND URETER, UNSPECIFIED Status: Resolved Priority: High (2) Dehydration SNOMED Code(s): 18514005 ICD Code: E86.0 - DEHYDRATION Status: Resolved Priority: High (3) Weakness SNOMED Code(s): 30739217 ICD Code: R53.1 - WEAKNESS Status: Resolved Priority: High (4) Hypotension SNOMED Code(s): 10345982 ICD Code: I95.9 - HYPOTENSION, UNSPECIFIED Status: Resolved Priority: High Qualifiers: Hypotension type: unspecified hypotension type Qualified Code(s): I95.9 - Hypotension, unspecified (5) Headache SNOMED Code(s): 66084467 ICD Code: R51 - HEADACHE Status: Resolved Priority: Medium Qualifiers: Headache type: unspecified Headache chronicity pattern: chronic headache Intractability: not intractable Qualified Code(s): R51 - Headache - Patient Summary/Data Consults: Consultations 08/23/17 20:13 Consult to Case Management [CONS] Routine Consult to Monogram Machine Operator [CONS] Routine OT Evaluation and Treatment [CONS] Routine PT Evaluation and Treatment [CONS] Routine - Patient Instructions Diet: Heart Healthy Diet Activity: As Tolerated Driving: Do Not Drive Showering/Bathing: May Shower Notify Provider of: Fever, Nausea and/or Vomiting Other/Special Instructions: - Please resume all home medications. - You are high fall and aspiration risk. - We recommened 1:1 care with feeding. - Call or follow up with your PCP for any questions or concerns after discharge - Discharge Plan Home Medications: Home Meds Lisinopril 40 mg PO DAILY #30 tablet 06/23/14 [Rx] Diltiazem HCl [Dilt-Xr] 240 mg PO DAILY 11/23/15 [History] Omeprazole 20 mg PO ACBREAKFAST 09/15/16 [History] Acetaminophen [Tylenol] 650 mg PO Q6H PRN #30 tablet 10/03/16 [Rx] Bisacodyl [Dulcolax] 10 mg RECTAL DAILY PRN #30 supp 10/03/16 [Rx] Cholecalciferol (Vitamin D3) [Vitamin D3] 2,000 units PO DAILY tablet 10/03/16 [Rx] Docusate Sodium [Colace] 100 mg PO DAILY cap 10/03/16 [Rx] Hydrochlorothiazide 25 mg PO DAILY #30 tablet 10/03/16 [Rx] Multivitamins,Therapeutic [Thera] 1 each PO DAILY tablet 10/03/16 [Rx] Bimatoprost [Lumigan 0.03% Oph Soln] 1 drop EYEBOTH BEDTIME 08/23/17 [History] Brimonidine Tartrate/Timolol [Combigan 0.2%-0.5% Eye Drops] 1 drop EYEBOTH BID 08/23/17 [History] Citalopram Hydrobromide [Celexa] 15 mg PO DAILY 08/23/17 [History] Estrogens, Conjugated [Premarin Vaginal Crm] 0.5 gm VAG DAILY 08/23/17 [History] Prednisolone Acetate/Nepafenac [Prednisolone 1%-Nepafenac 0.1%] 3.5 ml OP TID [History] Patient Handouts: Hypotension, [id number], Weakness, [id number], Dehydration, Adult, [id number] Referrals: Stephen Guzman MD [Primary Care Provider] - (Make appointment to follow-up in 7- 10 days.) - Discharge Summary/Plan Comment DC Time >30 min.: Yes (45 min) - General Info Date of Service: 08/25/17 Admission Dx/Problem (Free Text: Admission Diagnosis/Problem Admission Diagnosis/Problem Acute renal insufficiency Subjective Update: Follow-up Functional Status: Reports: Pain Controlled, Tolerating Diet, Ambulating, Urinating. Denies: New Symptoms - Review of Systems General: Reports: No Symptoms HEENT: Reports: No Symptoms Pulmonary: Reports: No Symptoms Cardiovascular: Reports: No Symptoms Gastrointestinal: Reports: No Symptoms Genitourinary: Reports: No Symptoms Musculoskeletal: Reports: No Symptoms Skin: Reports: No Symptoms Neurological: Reports: No Symptoms Psychiatric: Reports: No Symptoms - Patient Data Vitals - Most Recent: Last Vital Signs Temp 98.6 F 08/25/17 12:05 Pulse 71 08/25/17 12:05 Resp 20 08/25/17 12:05 BP 130/92 H 08/25/17 12:05 Pulse Ox 99 08/25/17 12:05 Weight - Most Recent: 135 lb 4.8 oz I&O - Last 24 hours: Intake & Output 08/25/17 08/25/17 08/25/17 06:59 14:59 22:59 Intake Total 2350 450 Output Total 850 Balance 1500 450 Lab Results - Last 24 hrs: Laboratory Results - last 24 hr 08/25/17 08/25/17 Range/Units 06:05 06:05 WBC 9.62 (3.98-10.04) K/mm3 RBC 4.39 (3.98-5.22) M/mm3 Hgb 13.2 (11.2-15.7) gm/L Hct 40.6 (34.1-44.9) % MCV 92.5 (79.4-94.8) fl MCH 30.1 (25.6-32.2) pg MCHC 32.5 (32.2-35.5) g/dl RDW Std Deviation 43.1 (36.4-46.3) fL Plt Count 206 (182-369) K/mm3 MPV 11.9 (9.4-12.3) fl Neut % (Auto) 71.6 H (34.0-71.1) % Lymph % (Auto) 17.3 L (19.3-51.7) % [place] % (Auto) 8.4 (4.7-12.5) % Eos % (Auto) 2.2 (0.7-5.8) Baso % (Auto) 0.3 (0.1-1.2) % Neut # (Auto) 6.89 H (1.56-6.13) K/mm3 Lymph # (Auto) 1.66 (1.18-3.74) K/mm3 [place] # (Auto) 0.81 H (0.24-0.36) K/mm3 Eos # (Auto) 0.21 (0.04-0.36) K/mm3 Baso # (Auto) 0.03 (0.01-0.08) K/mm3 Sodium 144 (136-145) mEq/L Potassium 3.7 (3.5-5.1) mEq/L Chloride 112 H (98-107) mEq/L Carbon Dioxide 19 L (21-32) mEq/L Anion Gap 16.7 H (5-15) BUN 22 H (7-18) mg/dL Creatinine 1.0 (0.55-1.02) mg/dL Est Cr Clr Drug Dosing 50.68 mL/min Estimated GFR (MDRD) 55 (>60) mL/min BUN/Creatinine Ratio 22.0 H (14-18) Glucose 98 (80-115) mg/dL Calcium 8.9 (8.5-10.1) mg/dL Magnesium 1.9 (1.8-2.4) mg/dl Med Orders - Current: Current Medications Discontinued Medications Acetaminophen (Tylenol) 650 mg PO Q4H PRN PRN Reason: Pain (Mild 1-3)/fever Hydrocodone Bitart/Acetaminophen (Wilson 325-5 Mg) 1 tab PO Q4H PRN PRN Reason: Pain (moderate 4-6) Albuterol/Ipratropium (Duoneb 3.0-0.5 Mg/3 Ml) 3 ml NEB Q4H PRN PRN Reason: Shortness Of Breath/wheezing Bisacodyl (Dulcolax) 5 mg PO DAILY PRN PRN Reason: Constipation Brimonidine Tartrate (Alphagan 0.2% Ophth Soln) 0 ml EYEBOTH BID [facility] Brimonidine Tartrate (Alphagan 0.2% Ophth Soln) 0 ml EYEBOTH BID [facility] Last Admin: 08/25/17 08:25 Dose: 1 drop Cholecalciferol (Vitamin D3) 2,000 units PO DAILY [facility] Last Admin: 08/25/17 08:26 Dose: 2,000 units Citalopram Hydrobromide (Celexa) 15 mg PO DAILY [facility] Last Admin: 08/25/17 08:25 Dose: 15 mg Diltiazem HCl (Dilacor Xr) 240 mg PO DAILY [facility] Last Admin: 08/25/17 08:25 Dose: 240 mg Docusate Sodium (Colace) 100 mg PO BID PRN PRN Reason: Constipation Estrogens Conjugated (Premarin Vaginal Crm) 0.5 gm VAG DAILY [facility] Last Admin: 08/25/17 08:26 Dose: 0.5 gram Hydralazine HCl (Apresoline) 10 mg PO Q6H PRN PRN Reason: Hypertension Sodium Chloride (Normal Saline) 1,000 mls @ 1,000 mls/hr IV ONETIME ONE Stop: 08/23/17 18:19 Last Admin: 08/23/17 18:15 Dose: 1,000 mls/hr Sodium Chloride (Normal Saline) 1,000 mls @ 200 mls/hr IV ASDIRECTED [facility] Stop: 08/25/17 01:44 Last Admin: 08/24/17 02:01 Dose: 200 mls/hr Sodium Chloride (Normal Saline) 1,000 mls @ 150 mls/hr IV ASDIRECTED [facility] Stop: 08/25/17 23:39 Last Admin: 08/24/17 23:48 Dose: 150 mls/hr Influenza Virus Vaccine (Pharmacy To Dose - Influenza Vaccine) 1 each IM ONETIME ONE Stop: 08/23/17 20:20 Influenza Virus Vaccine (Fluzone High-Dose ) 180 mcg IM .ONCE ONE Stop: 08/23/17 21:01 Influenza Virus Vaccine (Fluzone High-Dose ) 180 mcg IM .ONCE ONE Stop: 08/25/17 10:53 Last Admin: 08/25/17 11:03 Dose: 180 mcg Latanoprost (Xalatan 0.005% Ophth Soln) 0 ml EYEBOTH BEDTIME [facility] Last Admin: 08/24/17 20:36 Dose: 1 drop Magnesium Hydroxide (Milk Of Magnesia) 30 ml PO Q12H PRN PRN Reason: Constipation Magnesium Sulfate (Pharmacy To Dose - Magnesium Replacement) 0 dose .XX ASDIRECTED PRN PRN Reason: RX TO WATCH MAG LEVELS Metoprolol Tartrate (Lopressor) 5 mg IVPUSH Q4H PRN PRN Reason: Tachycardia Multivitamins (Thera) 1 each PO DAILY [facility] Last Admin: 08/25/17 08:25 Dose: 1 each Ondansetron HCl (Zofran Odt) 4 mg PO Q4H PRN PRN Reason: nausea, able to take PO Ondansetron HCl (Zofran) 4 mg IV Q4H PRN PRN Reason: Nausea/Vomiting Pantoprazole Sodium (Protonix) 40 mg PO DAILY@0700 [facility] Last Admin: 08/25/17 06:20 Dose: 40 mg Prednisolone 1%- Nepafenac Ophth Solution 0 each EYERT TID [facility] Last Admin: 08/25/17 10:51 Dose: Not Given Potassium Chloride (Pharmacy To Dose - Potassium Replacement) 0 dose .XX ASDIRECTED PRN PRN Reason: RX TO WATCH K LEVELS Senna/Docusate Sodium (Senna Plus) 1 tab PO BID PRN PRN Reason: Constipation Sodium Chloride (Saline Flush) 10 ml FLUSH ASDIRECTED PRN PRN Reason: Keep Vein Open Last Admin: 08/23/17 17:35 Dose: 10 ml Temazepam (Restoril) 7.5 mg PO BEDTIME PRN PRN Reason: Sleep Timolol Maleate (Timoptic 0.5% Ophth Soln) 0 ml EYEBOTH BID [facility] Last Admin: 08/25/17 08:25 Dose: 1 drop - Exam Quality Assessment: Reports: DVT Prophylaxis General: Reports: Alert, Oriented, Cooperative HEENT: Reports: Mucous Membr. Moist/[place] Neck: Reports: Supple, Trachea Midline. Denies: No JVD, No Thyromegaly Lungs: Reports: Clear to Auscultation, Normal Respiratory Effort Cardiovascular: Reports: Regular Rate, Regular Rhythm GI/Abdominal Exam: Normal Bowel Sounds, Soft, Non-Tender, No Organomegaly, No Distention, No Abnormal Bruit, No Mass, Pelvis Stable (Female) Exam: Deferred Rectal (Female) Exam: Deferred Back Exam: Reports: Normal Inspection, Full Range of Motion Extremities: Normal Inspection, Normal Range of Motion, Non-Tender, No Pedal Edema, Normal Capillary Refill Skin: Reports: Warm, Dry, Intact Neurological: Reports: No New Focal Deficit Psy/Mental Status: Reports: Alert, Normal Affect, Normal Mood Physical Findings Comments:: Patient continues to improve today. Labs look excellent. She'll be discharged to [facility]. *Q Meaningful Use (DIS) - VTE *Q VTE Criteria *Q: - Stroke *Q Stroke Criteria *Q: - AMI *Q AMI Criteria *Q:
== END 2017-08-25 13:00 | DRG 700 ==
LOC: JD.ED 17:00 → JD.MS 19:05
PROVIDERS: ADMIT Internal Medicine; ATTEND Internal Medicine
DX: N28.9 Disorder of kidney and ureter, unspecified (principal); E86.0 Dehydration; I95.9 Hypotension, unspecified; R53.1 Weakness; R51 Headache; F03.90 Unspecified dementia, unspecified severity, without behavioral disturbance, psychotic disturbance, mood disturbance, and anxiety; I10 Essential (primary) hypertension; K80.20 Calculus of gallbladder without cholecystitis without obstruction; R32 Unspecified urinary incontinence; F32.9 Major depressive disorder, single episode, unspecified; Z87.440 Personal history of urinary (tract) infections; H54.8 Legal blindness, as defined in USA; Z79.899 Other long term (current) drug therapy; Z23 Encounter for immunization
CPT/HCPCS: 70450; 96360; 99285; 85652; 81001; 36415; 87040 ×2; J7040; J7050; P9612; 70551; 70551-26; 80048; 82553; 83735; 84484; 85025; 87641; 90662; 97110-GO; 97116-GP; 97162-GP; 97167-GO; 97530-GO; 97535-GO; A9270-GY; G0008

== ENCOUNTER 2017-10-02 15:08 | Emergency (ER) | payer MEDICARE, MEDICAID ==
[2017-10-02 15:24] VITALS: BP 110/69
[2017-10-02] MEDS ORDERED: Sodium Chloride 0.9% 10 ML Syringe FLUSH PRN (15:30)
--- NOTE | 2017-10-02 16:11 | EDM.PDOC ---
ED HPI GENERAL MEDICAL PROBLEM - General Chief Complaint: Lower Extremity Injury/Pain Stated Complaint: [facility] Time Seen by Provider: 10/02/17 15:30 Source of Information: Reports: [facility] History Limitations: Reports: No Limitations - History of Present Illness INITIAL COMMENTS - FREE TEXT/NARRATIVE: 67-year-old female presents via [facility] for left leg swelling. [facility] the left leg swelling started on Monday. Patient states that her leg is cold. She reports sensation to light touch. No chest pain, shortness of breath or pain in the leg. She is not on any blood thinners. Location: Reports: Lower Extremity, Left - Related Data Allergies Allergy/AdvReac Type Severity Reaction Status Date / Time No Known Allergies Allergy Verified 10/02/17 15:20 Home Meds: Home Meds Diltiazem HCl [Dilt-Xr] 240 mg PO DAILY 11/23/15 [History] Omeprazole 20 mg PO ACBREAKFAST 09/15/16 [History] Acetaminophen [Tylenol] 650 mg PO Q6H PRN #30 tablet 10/03/16 [Rx] Bisacodyl [Dulcolax] 10 mg RECTAL DAILY PRN #30 supp 10/03/16 [Rx] Cholecalciferol (Vitamin D3) [Vitamin D3] 2,000 units PO DAILY tablet 10/03/16 [Rx] Docusate Sodium [Colace] 100 mg PO DAILY cap 10/03/16 [Rx] Hydrochlorothiazide 25 mg PO DAILY #30 tablet 10/03/16 [Rx] Multivitamins,Therapeutic [Thera] 1 each PO DAILY tablet 10/03/16 [Rx] Bimatoprost [Lumigan 0.03% Ophth Soln] 1 drop EYEBOTH BEDTIME 08/23/17 [History] Brimonidine Tartrate/Timolol [Combigan 0.2%-0.5% Eye Drops] 1 drop EYEBOTH BID 08/23/17 [History] Citalopram Hydrobromide [Celexa] 15 mg PO DAILY 08/23/17 [History] Enoxaparin Sodium [Lovenox] 60 mg SQ BID #5.4 ml 10/02/17 [Rx] Lisinopril 40 mg PO DAILY 10/02/17 [History] Potassium Chloride 10 meq PO DAILY 10/02/17 [History] Warfarin [Coumadin] 5 mg PO DAILY #7 tablet 10/02/17 [Rx] acetaZOLAMIDE [Diamox] 500 mg PO BID 10/02/17 [History] Past Medical History HEENT History: Reports: Glaucoma Other HEENT History: cataracts Cardiovascular History: Reports: Hypertension Respiratory History: Reports: None Gastrointestinal History: Reports: Cholelithiasis, Jaundice Other Gastrointestinal History: plugged bile duct Genitourinary History: Reports: Urinary Incontinence, UTI, Recurrent Other Genitourinary History: micturition-frequency 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: Prolapsed Uterus Musculoskeletal History: Reports: Fracture, Other (See Below) Other Musculoskeletal History: Generalized weakness Neurological History: Reports: Alzheimers Disease Psychiatric History: Reports: Depression Endocrine/Metabolic History: Reports: Vitamin D Deficiency - Infectious Disease History Infectious Disease History: Reports: Chicken Pox, Measles, Mumps - Past Surgical History HEENT Surgical History: Reports: Eye Surgery Female Surgical History: Reports: Hysterectomy, Salpingo-Oophorectomy Social & Family History - Family History Family Medical History: Unobtainable Other Oncologic Family History: sister of cancer - Tobacco Use Smoking Status *Q: Never Smoker Second Hand Smoke Exposure: No - Caffeine Use Caffeine Use: Reports: Coffee, Soda - Alcohol Use Days Per Week of Alcohol Use: 0 - Recreational Drug Use Recreational Drug Use: No - Living Situation & Occupation Living situation: Reports: , with Spouse Occupation: Retired Review of Systems - Review of Systems Review Of Systems: See Below Respiratory: Denies: Shortness of Breath Cardiovascular: Denies: Chest Pain Musculoskeletal: Reports: Other (left leg swelling). Denies: Leg Pain ED EXAM, GENERAL - Physical Exam Exam: See Below Exam Limited By: No Limitations General Appearance: Alert, WD/WN, No Apparent Distress Respiratory/Chest: No Respiratory Distress Cardiovascular: Normal Peripheral Pulses, Regular Rate, Rhythm Peripheral Pulses: 1+: Posterior Tibial (L) (found with doppler) Extremities: Other (left leg swelling) Neurological: Alert, Normal Cognition Psychiatric: Normal Affect, Normal Mood Skin Exam: Warm, Dry, Normal Color, Increased Warmth (left leg) Course - Vital Signs Last Recorded V/S: Last Vital Signs Temp 36.8 C 10/02/17 15:20 Pulse 74 10/02/17 15:20 Resp 17 10/02/17 15:20 BP 110/69 10/02/17 15:20 Pulse Ox 98 10/02/17 15:20 - Orders/Labs/Meds Orders: Active Orders 24 hr Category Date Time Status Peripheral IV Care [RC] . DIRECTED Care 10/02/17 15:31 Active Sodium Chloride 0.9% [Saline Flush] Med 10/02/17 15:30 Active 10 ml FLUSH ASDIRECTED PRN Peripheral IV Insertion Adult [OM.PC] Routine Oth 10/02/17 15:30 Ordered Medication Orders Sodium Chloride (Saline Flush) 10 ml FLUSH ASDIRECTED PRN PRN Reason: Keep Vein Open Last Admin: 10/02/17 15:43 Dose: 10 ml Labs: Laboratory Tests 10/02/17 10/02/17 10/02/17 Range/Units 15:38 15:38 15:38 WBC 11.29 H (3.98-10.04) K/mm3 RBC 4.01 (3.98-5.22) M/mm3 Hgb 12.1 (11.2-15.7) gm/L Hct 39.2 (34.1-44.9) % MCV 97.8 H (79.4-94.8) fl MCH 30.2 (25.6-32.2) pg MCHC 30.9 L (32.2-35.5) g/dl RDW Std Deviation 47.8 H (36.4-46.3) fL Plt Count 188 (182-369) K/mm3 MPV 11.4 (9.4-12.3) fl Neut % (Auto) 71.3 H (34.0-71.1) % Lymph % (Auto) 13.6 L (19.3-51.7) % [place] % (Auto) 10.9 (4.7-12.5) % Eos % (Auto) 3.5 (0.7-5.8) Baso % (Auto) 0.4 (0.1-1.2) % Neut # (Auto) 8.06 H (1.56-6.13) K/mm3 Lymph # (Auto) 1.53 (1.18-3.74) K/mm3 [place] # (Auto) 1.23 H (0.24-0.36) K/mm3 Eos # (Auto) 0.40 H (0.04-0.36) K/mm3 Baso # (Auto) 0.04 (0.01-0.08) K/mm3 PT 9.5 (8.0-13.0) SECONDS INR 0.88 APTT 26 (22-36) SECONDS D-Dimer, Quantitative (0.19-0.59) mg/L Sodium 139 (136-145) mEq/L Potassium 4.2 (3.5-5.1) mEq/L Chloride 107 (98-107) mEq/L Carbon Dioxide 19 L (21-32) mEq/L Anion Gap 17.2 H (5-15) BUN 25 H (7-18) mg/dL Creatinine 1.1 H (0.55-1.02) mg/dL Est Cr Clr Drug Dosing TNP Estimated GFR (MDRD) 49 (>60) mL/min BUN/Creatinine Ratio 22.7 H (14-18) Glucose 111 (80-115) mg/dL Calcium 8.9 (8.5-10.1) mg/dL Total Bilirubin 0.3 (0.2-1.0) mg/dL AST 31 (15-37) U/L ALT 31 (14-59) U/L Alkaline Phosphatase 92 (46-116) U/L Total Protein 8.3 H (6.4-8.2) g/dl Albumin 3.0 L (3.4-5.0) g/dl Globulin 5.3 gm/dL Albumin/Globulin Ratio 0.6 L (1-2) 10/02/ Range/Units 15:38 WBC (3.98-10.04) K/mm3 RBC (3.98-5.22) M/mm3 Hgb (11.2-15.7) gm/L Hct (34.1-44.9) % MCV (79.4-94.8) fl MCH (25.6-32.2) pg MCHC (32.2-35.5) g/dl RDW Std Deviation (36.4-46.3) fL Plt Count (182-369) K/mm3 MPV (9.4-12.3) fl Neut % (Auto) (34.0-71.1) % Lymph % (Auto) (19.3-51.7) % [place] % (Auto) (4.7-12.5) % Eos % (Auto) (0.7-5.8) Baso % (Auto) (0.1-1.2) % Neut # (Auto) (1.56-6.13) K/mm3 Lymph # (Auto) (1.18-3.74) K/mm3 [place] # (Auto) (0.24-0.36) K/mm3 Eos # (Auto) (0.04-0.36) K/mm3 Baso # (Auto) (0.01-0.08) K/mm3 PT (8.0-13.0) SECONDS INR APTT (22-36) SECONDS D-Dimer, Quantitative 12.73 H (0.19-0.59) mg/L Sodium (136-145) mEq/L Potassium (3.5-5.1) mEq/L Chloride (98-107) mEq/L Carbon Dioxide (21-32) mEq/L Anion Gap (5-15) BUN (7-18) mg/dL Creatinine (0.55-1.02) mg/dL Est Cr Clr Drug Dosing Estimated GFR (MDRD) (>60) mL/min BUN/Creatinine Ratio (14-18) Glucose (80-115) mg/dL Calcium (8.5-10.1) mg/dL Total Bilirubin (0.2-1.0) mg/dL AST (15-37) U/L ALT (14-59) U/L Alkaline Phosphatase (46-116) U/L Total Protein (6.4-8.2) g/dl Albumin (3.4-5.0) g/dl Globulin gm/dL Albumin/Globulin Ratio (1-2) Meds: Medications Generic Name Dose Route Start Last Admin Trade Name Freq PRN Reason Stop Dose Admin Sodium Chloride 10 ml 10/02/17 15:30 10/02/17 15:43 Saline Flush FLUSH 10 ml ASDIRECTED PRN Administration Keep Vein Open Discontinued Medications Generic Name Dose Route Start Last Admin Trade Name Freq PRN Reason Stop Dose Admin Enoxaparin Sodium 60 mg 10/02/17 16:48 10/02/17 17:20 Lovenox SUBCUT 10/02/17 16:49 60 mg ONETIME ONE Administration Warfarin Sodium 7.5 mg 10/02/17 16:49 10/02/17 17:19 Coumadin PO 10/02/17 16:50 7.5 mg ONETIME ONE Administration - Radiology Interpretation Free Text/Narrative:: Left lower extremity deep venous ultrasound: Duplex and color flow imaging was obtained of the left common femoral, superficial femoral, popliteal, posterior tibial and peroneal veins. Greater saphenous vein and right common femoral vein was also evaluated. Findings: Partially occluding and diffuse thrombus is identified from the common femoral vein through the superficial femoral vein and proximal greater saphenous vein as well as proximal profunda vein inferiorly into the popliteal vein as well as posterior tibial and peroneal veins. Right common femoral vein is patent. Scattered areas of subcutaneous edema are seen. Impression: 1. Diffuse partially occluding thrombus throughout the deep veins of the left lower extremity. 2. Subcutaneous edema. - Re-Assessments/Exams Free Text/Narrative Re-Assessment/Exam: 10/02/17 16:49 Reviewed ultrasound results with the patient and her . Will start on Lovenox twice a day and Coumadin today. 7.5 mg given in the ER today. Will start Coumadin 5 mg daily. Follow-up with Dr. Guzman on Monday. Will discharge home to the [facility]. Departure - Departure Time of Disposition: 16:55 Disposition: Home, Self-Care 01 Condition: Fair Clinical Impression: DVT (deep venous thrombosis) - Discharge Information Prescriptions: Enoxaparin Sodium [Lovenox] 60 mg SQ BID #5.4 ml Warfarin [Coumadin] 5 mg PO DAILY #7 tablet Referrals: Stephen Guzman MD [Primary Care Provider] - Forms: ED Department Discharge Additional Instructions: Lovenox 60 mg subcutaneous twice a day. Her first dose was given in the ER. Coumadin 5 mg daily. Your first dose was given in the ER, [facility] prescription tomorrow [id number]. follow-up with Dr. Hale on Monday for recheck of your symptoms and for an INR check. Please return to the ER if her symptoms change or worsen. Particularly like to see you for chest pain, tachycardia, syncope or shortness of breath. - My Orders Last 24 Hours: My Active Orders 10/02/17 15:30 Sodium Chloride 0.9% [Saline Flush] 10 ml FLUSH ASDIRECTED PRN Peripheral IV Insertion Adult [OM.PC] Routine 10/02/17 15:31 Peripheral IV Care [RC] . DIRECTED - Assessment/Plan Last 24 Hours: My Active Orders 10/02/17 15:30 Sodium Chloride 0.9% [Saline Flush] 10 ml FLUSH ASDIRECTED PRN Peripheral IV Insertion Adult [OM.PC] Routine 10/02/17 15:31 Peripheral IV Care [RC] . DIRECTED
--- NOTE | 2017-10-02 16:32 | US ---
Left lower extremity deep venous ultrasound: Duplex and color flow imaging was obtained of the left common femoral, superficial femoral, popliteal, posterior tibial and peroneal veins. Greater saphenous vein and right common femoral vein was also evaluated. Findings: Partially occluding and diffuse thrombus is identified from the common femoral vein through the superficial femoral vein and proximal greater saphenous vein as well as proximal profunda vein inferiorly into the popliteal vein as well as posterior tibial and peroneal veins. Right common femoral vein is patent. Scattered areas of subcutaneous edema are seen. Impression: 1. Diffuse partially occluding thrombus throughout the deep veins of the left lower extremity. 2. Subcutaneous edema. Diagnostic code #5
[2017-10-02] MEDS ORDERED: Enoxaparin 60 MG/0.6 ML Syringe SUBCUT ONE (16:48)
[2017-10-02] MEDS ORDERED: Warfarin 7.5 MG Tab PO ONE (16:49)
== END 2017-10-02 18:14 | disposition home or self-care (01) ==
LOC: JD.ED 15:08
DX: I82.4Z2 Acute embolism and thrombosis of unspecified deep veins of left distal lower extremity (principal); I10 Essential (primary) hypertension; Z79.899 Other long term (current) drug therapy
CPT/HCPCS: 36415; 80053; 85025; 85379; 85610; 85730; 93971; 96372; 99285; A9270; J1650; J7050; 99284

== ENCOUNTER 2023-05-21 13:48 | Emergency (ER) | payer MEDICARE, OTHER, MEDICAID ==
[2023-05-21] MEDS ORDERED: Sodium Chloride 0.9% 10 ML Syringe FLUSH PRN (14:08)
[2023-05-21] MEDS ORDERED: Sodium Chloride 0.9% 1,000 ML IV SCH ×2 (14:15→18:30)
[2023-05-21 14:43] LABS: BASOPHILS ABSOLUTE AUTO 0.04 K/mm3 (0.01-0.08); BASOPHILS PERCENT AUTO 0.4 % (0.1-1.2); EOSINOPHILS PERCENT AUTO 3.7 (0.7-5.8); HEMATOCRIT 43.5 % (34.1-44.9); HEMOGLOBIN 13.8 gm/dl (11.2-15.7); IMMATURE GRAN ABSOLUTE AUTO 0.02 K/mm3 (0.00-0.10); IMMATURE GRAN PERCENT AUTO 0.2 % (<=1.0); LYMPHOCYTES ABSOLUTE AUTO 2.41 K/mm3 (1.18-3.74); LYMPHOCYTES PERCENT AUTO 22.5 % (19.3-51.7); MEAN CORPUSCULAR HEMOGLOBIN 28.7 pg (25.6-32.2); MEAN CORPUSCULAR HGB CONC 31.7 g/dl (32.2-35.5); MEAN CORPUSCULAR VOLUME 90.4 fl (79.4-94.8); MEAN PLATELET VOLUME 11.9 fl (9.4-12.3); MONOCYTES ABSOLUTE AUTO 0.87 K/mm3 (0.24-0.36); MONOCYTES PERCENT AUTO 8.1 % (4.7-12.5); NEUTROPHILS ABSOLUTE AUTO 6.96 K/mm3 (1.56-6.13); NEUTROPHILS PERCENT AUTO 65.1 % (34.0-71.1); PLATELET COUNT,PLT 224 K/mm3 (182-369); RED BLOOD CELL COUNT 4.81 M/mm3 (3.98-5.22)
[2023-05-21 14:59] LABS: A/G RATIO 0.5 (1-2); ALANINE AMINOTRANSFERASE,ALT 25 U/L (14-59); ALBUMIN 2.9 g/dl (3.4-5.0); ALKALINE PHOSPHATASE 86 U/L (46-116); ANION GAP 8.7 (5-15); ASPARTATE AMNIOTRANSFERASE,AST 37 U/L (15-37); BILIRUBIN TOTAL 0.3 mg/dL (0.2-1.0); BLOOD UREA NITROGEN,BUN 19 mg/dL (7-18); BUN/CREATININE RATIO 21.1 (14-18); C-REACTIVE PROTEIN <0.2 mg/dL (<1.0); CALCIUM 9.1 mg/dL (8.5-10.1); CARBON DIOXIDE,CO2 29 mEq/L (21-32); CHLORIDE,CL 103 mEq/L (98-107); CREATININE 0.9 mg/dL (0.55-1.02); EST CRCL DRUG DOSING (CG) 47.36 mL/min; ESTIMATED GFR 67 mL/min (>60); GLUCOSE RANDOM 87 mg/dL (70-99); MAGNESIUM 2.2 mg/dL (1.8-2.4); POTASSIUM,K 3.7 mEq/L (3.5-5.1); PROTEIN TOTAL,TP 8.4 g/dl (6.4-8.2); SODIUM,NA 137 mEq/L (136-145); TROPONIN I HIGH SENSITIVITY 7 pg/mL (<=51)
[2023-05-21 16:21] LABS: APPEARANCE,URINE CLOUDY (Clear); BILIRUBIN,URINE NEGATIVE (Negative); COLOR,URINE YELLOW (Yellow); GLUCOSE,URINE NEGATIVE (Negative); KETONES,URINE NEGATIVE (Negative); LEUKOCYTE ESTERASE,URINE 2+ (Negative); NITRITE,URINE POSITIVE (Negative); OCCULT BLOOD,URINE TRACE-INTACT (Negative); PROTEIN,URINE 1+ (Negative); UROBILINOGEN,URINE 0.2 (0.2-1.0)
[2023-05-21 16:29] LABS: BACTERIA,URINE MANY /hpf (FEW); MUCUS,URINE NOT SEEN /hpf (FEW); SQUAMOUS EPITHELIAL CELLS,UR 0-5 /hpf (0-5); WBC,URINE TOO NUMEROUS TO CNT /hpf (0-5)
[2023-05-21] MEDS ORDERED: cefTRIAXone 2 GM in Sodium Chloride 0.9% 100 ML IV ONE (16:33)
[2023-05-21 19:31] VITALS: BP 117/75; PULSE 71
== END 2023-05-21 19:28 ==
LOC: JD.ED 13:48
DX: E86.0 Dehydration (principal); N30.00 Acute cystitis without hematuria; R40.4 Transient alteration of awareness; I10 Essential (primary) hypertension; Z79.899 Other long term (current) drug therapy
CPT/HCPCS: 36415; 70450; 71045; 80053; 81001; 83605; 83735; 84484; 85025; 86140; 93005; 96361; 96365; 99285; J0696; J3490; J7030; 93010; 99284

== ENCOUNTER 2023-05-30 08:13 | Emergency (ER) | payer MEDICARE, OTHER, MEDICAID ==
[2023-05-30 09:48] VITALS: BP 113/77; PULSE 80
== END 2023-05-30 09:45 ==
LOC: JD.ED 08:13
DX: F03.90 Unspecified dementia, unspecified severity, without behavioral disturbance, psychotic disturbance, mood disturbance, and anxiety (principal); I10 Essential (primary) hypertension; Z79.899 Other long term (current) drug therapy; W05.0XXA Fall from non-moving wheelchair, initial encounter
CPT/HCPCS: 70450; 70450-26; 99284

== ENCOUNTER 2025-07-21 12:22 | Emergency (ER) | payer MEDICARE, OTHER, MEDICAID ==
[2025-07-21 13:23] LABS: BASOPHILS ABSOLUTE AUTO 0.1 K/mm3 (0.0-0.2); BASOPHILS PERCENT AUTO 0.6 % (0.0-1.0); EOSINOPHILS ABSOLUTE AUTO 0.2 K/mm3 (0.0-0.4); EOSINOPHILS PERCENT AUTO 2.5 % (0.0-6.0); IMMATURE GRAN ABSOLUTE AUTO 0.02 K/mm3 (0.00-0.05); IMMATURE GRAN PERCENT AUTO 0.2 % (0.0-0.4); LYMPHOCYTES ABSOLUTE AUTO 1.6 K/mm3 (1.0-4.8); LYMPHOCYTES PERCENT AUTO 17.3 % (24.0-44.0); MEAN PLATELET VOLUME 12.2 fl (9.4-12.3); MONOCYTES ABSOLUTE AUTO 0.5 K/mm3 (0.0-0.8); MONOCYTES PERCENT AUTO 5.7 % (0.0-8.0); NEUTROPHILS ABSOLUTE AUTO 6.6 K/mm3 (1.8-7.7); NEUTROPHILS PERCENT AUTO 73.7 % (41.0-71.0); NRBC ABSOLUTE 0.00 (0.00-0.02); NRBC PERCENT 0.0 % (0.0-0.2); PLATELET COUNT,PLT 205 K/mm3 (150-400); RED BLOOD CELL COUNT 5.69 M/mm3 (4.10-5.30); WHITE BLOOD CELL COUNT,WBC 8.96 K/mm3 (3.9-11.3)
[2025-07-21 13:31] LABS: A/G RATIO 0.5 (1-2); ALANINE AMINOTRANSFERASE,ALT 34.0 U/L (14-59); ASPARTATE AMNIOTRANSFERASE,AST 34.0 U/L (15-37); BILIRUBIN TOTAL 0.3 mg/dL (0.2-1.0); BLOOD UREA NITROGEN,BUN 16.0 mg/dL (7-18); CARBON DIOXIDE,CO2 28.0 mEq/L (21-32); CHLORIDE,CL 102.0 mEq/L (98-107); CREATININE 1.0 mg/dL (0.55-1.02); EST CRCL DRUG DOSING (CG) 37.85 mL/min; ESTIMATED GFR 58.0 mL/min (>60); GLUCOSE RANDOM 103.0 mg/dL (70-99); PROTEIN TOTAL,TP 9.4 g/dl (6.4-8.2); SODIUM,NA 140.0 mEq/L (136-145); TROPONIN I HIGH SENSITIVITY 10.0 pg/mL (<=51)
[2025-07-21 13:32] LABS: POTASSIUM,K 4.6 mEq/L (3.5-5.1)
[2025-07-21] MEDS: Sodium Chloride 0.9% 10 ML Syringe FLUSH PRN (14:03)
[2025-07-21 15:58] LABS: APPEARANCE,URINE CLEAR (Clear); GLUCOSE,URINE NEGATIVE (Negative); OCCULT BLOOD,URINE TRACE-INTACT (Negative)
[2025-07-21 16:09] LABS: EPITHELIAL CELLS,URINE 0-5 /hpf (0-5)
[2025-07-21 20:19] VITALS: BP 111/78; PULSE 83
== END 2025-07-21 18:20 ==
LOC: JD.ED 12:22
DX: R07.89 Other chest pain (principal); M54.6 Pain in thoracic spine; N30.00 Acute cystitis without hematuria; I10 Essential (primary) hypertension; Z90.49 Acquired absence of other specified parts of digestive tract; Z90.710 Acquired absence of both cervix and uterus; Z79.01 Long term (current) use of anticoagulants; Z79.899 Other long term (current) drug therapy
CPT/HCPCS: 36415; 71045; 80053; 81001; 83735; 84484; 85025; 93005; 96374; 96375; 99285; C1758; J0696; J2270